=== PATIENT | female | born 1945 | race Hispanic/Latino ===

== ENCOUNTER 2017-05-27 12:50 | Inpatient (IN) | payer MEDICARE ==
[~2017-05-27] VITALS: Ht 157.5 cm; Wt 103.9 kg
[~2017-05-27 12:50] MED LIST: ASPI-1197 PO; BUDE10.2 IH; CLOP75TA32 PO; DOXY100T2 PO; FURO40TA5 PO; GLIP5TAB11 PO; LINA290C PO; LISI1TAB11 PO; METF500T6 PO; OMEP40CA37 PO; PRAV20TA4 PO; PRED20TA3 PO; THEO400T3 PO
[2017-05-27] MEDS ORDERED: IPRATROPIUM/ALBUTEROL SULFATE 3 ML SOLUTION IH ONE ×3 (13:02→22:13)
[2017-05-27 13:21] LABS: BASOPHILS % (AUTO) 0.5 % (0.0-5.0); EOSINOPHILS % (AUTO) 3.8 % (0.0-8.0); HEMATOCRIT 35.6 % (36-48); LYMPHOCYTES % (AUTO) 18.3 % (21.0-51.0); MEAN CORPUSCULAR HEMOGLOBIN 32.1 pg (27.0-33.0); MEAN CORPUSCULAR HGB CONC 35.1 g/dL (32.0-36.0); MEAN CORPUSCULAR VOLUME 91.5 fL (79-99); MONOCYTES % (AUTO) 8.8 % (3.0-13.0); NEUTROPHILS % (AUTO) 68.6 % (40.0-77.0); PLATELET COUNT (AUTO) 155 K/uL (130-400); RED BLOOD CELL COUNT(AUTO) 3.89 MIL/uL (4.00-5.50); RED CELL DISTRIBUTION WIDTH 13.7 % (11.0-15.5); WHITE BLOOD COUNT (AUTO) 6.4 K/uL (4.8-10.8)
[2017-05-27 13:30] LABS: CREATININE 0.8 mg/dL (0.5-1.5); POTASSIUM 4.2 mmol/L (3.5-5.1)
[2017-05-27] MEDS ORDERED: METHYLPREDNISOLONE SOD SUCC 125MG/2ML VIAL ONE (14:19)
[2017-05-27] MEDS ORDERED: DOXYCYCLINE 100MG+NS 250ML 250 ML IV ONE (16:54)
[2017-05-27] MEDS ORDERED: SODIUM CHLORIDE 0.9% 1000ML 1,000 ML IV ONE (17:05)
[2017-05-27 19:00] VITALS: BP 150/82
[2017-05-27] MEDS ORDERED: SODIUM CHLORIDE 0.9% 1000ML 1,000 ML IV SCH (21:45)
[2017-05-27] MEDS ORDERED: LIDOCAINE HCL-MPF 1% 2ML VIAL IVP PRN (21:45)
[2017-05-27] MEDS ORDERED: GLUCAGON 1MG KIT 1 MG ML IM PRN (21:45)
[2017-05-27] MEDS ORDERED: POTASSIUM CHLORIDE 20MEQ/100ML 100 ML IV PRN (21:45)
[2017-05-27] MEDS ORDERED: POTASSIUM CHLORIDE 10% ELIXIR 20 MEQ/15 ML UDCUP PO PRN (21:45)
[2017-05-27] MEDS ORDERED: DEXTROSE 50%-WATER 50 ML DISP.SYRIN IV PRN (21:45)
[2017-05-27] MEDS ORDERED: POTASSIUM CHLORIDE 20 MEQ ERTAB PO PRN (21:45)
[2017-05-27] MEDS: METHYLPREDNISOLONE SOD SUCC 40MG/ML 1ML IVP SCH (22:34)
[2017-05-27] MEDS: GUAIFENESIN-DM 200/20 MG 10 ML PO PRN (22:39)
[2017-05-27 23:54] VITALS: BP 132/65
[2017-05-28] MEDS: IPRATROPIUM/ALBUTEROL SULFATE 3 ML SOLUTION IH SCH ×6 (02:28→21:51)
[2017-05-28 04:00] VITALS: BP 124/62
[2017-05-28] MEDS: METHYLPREDNISOLONE SOD SUCC 40MG/ML 1ML IVP SCH ×3 (04:31→21:44)
[2017-05-28] MEDS: DOXYCYCLINE 100MG+NS 250ML 250 ML IV SCH ×2 (04:31→17:10)
[2017-05-28] MEDS: GUAIFENESIN-DM 200/20 MG 10 ML PO PRN (04:41)
[2017-05-28] MEDS: INSULIN HUMULIN R 100 UNIT/ML 3ML SQ SCH ×4 (06:06→21:49)
[2017-05-28 08:00] VITALS: BP 130/72
[2017-05-28] MEDS ORDERED: NITROGLYCERIN 0.4 MG SL TAB SL PRN (08:00)
[2017-05-28] MEDS ORDERED: GLIPIZIDE XL 5MG TAB PO SCH (08:00)
[2017-05-28] MEDS ORDERED: MORPHINE SULFATE 4 MG/1ML SYG IV PRN (08:00)
[2017-05-28] MEDS ORDERED: LACTULOSE 20 GM/30 ML UDCUP PO PRN (08:00)
[2017-05-28] MEDS ORDERED: ACETAMINOPHEN-CODEINE 300/30MG TAB PO PRN ×2 (08:00)
[2017-05-28] MEDS ORDERED: GUAIFENESIN-DM 200/20 MG 10 ML PO PRN (08:00)
[2017-05-28] MEDS ORDERED: ACETAMINOPHEN 325 MG TAB PO PRN ×2 (08:00)
[2017-05-28] MEDS ORDERED: MAG HYDROX/AL HYDROX/SIMETH ES 30 ML SUSP UDCUP PO PRN (08:00)
[2017-05-28] MEDS ORDERED: HYDRALAZINE HCL 20 MG/ML VIAL IV PRN (08:00)
[2017-05-28] MEDS ORDERED: ONDANSETRON HCL 4 MG/2 ML VIAL IV PRN (08:00)
[2017-05-28] MEDS ORDERED: MORPHINE SULFATE 2 MG/ML 1ML SYG IV PRN (08:00)
[2017-05-28] MEDS ORDERED: SUB PER P&T FOR ASTHMA OR COPD RECOMMENDATION IH SCH (09:00)
[2017-05-28] MEDS: FAMOTIDINE/PF 20 MG/2 ML VIAL IV SCH ×2 (09:05→21:43)
[2017-05-28] MEDS: ENOXAPARIN SODIUM 40 MG/0.4 ML SYRINGE SQ SCH (09:06)
[2017-05-28] MEDS: GUAIFENESIN-CODEINE 5 ML SYRUP PO PRN ×2 (09:07→21:44)
[2017-05-28 11:59] VITALS: BP 134/65
[2017-05-28 16:00] VITALS: BP 126/66
[2017-05-28] MEDS: BUDESONIDE 0.5 MG/2 ML INH IH SCH (18:46)
[2017-05-28 19:39] VITALS: BP 135/74
[2017-05-28] MEDS ORDERED: MONT10TA24 PO (22:01)
[2017-05-28] MEDS ORDERED: POTA-81 PO (22:01)
[2017-05-28 23:41] VITALS: BP 146/75
[2017-05-29] MEDS: IPRATROPIUM/ALBUTEROL SULFATE 3 ML SOLUTION IH SCH ×4 (03:03→18:12)
[2017-05-29 03:59] VITALS: BP 145/64
[2017-05-29 04:27] LABS: HEMATOCRIT 32.9 % (36-48); MEAN CORPUSCULAR HEMOGLOBIN 32.1 pg (27.0-33.0); MEAN CORPUSCULAR VOLUME 91.6 fL (79-99); PLATELET COUNT (AUTO) 139 K/uL (130-400); RED BLOOD CELL COUNT(AUTO) 3.59 MIL/uL (4.00-5.50); RED CELL DISTRIBUTION WIDTH 14.1 % (11.0-15.5); WHITE BLOOD COUNT (AUTO) 8.5 K/uL (4.8-10.8)
[2017-05-29 04:40] LABS: POTASSIUM 4.3 mmol/L (3.5-5.1)
[2017-05-29] MEDS: DOXYCYCLINE 100MG+NS 250ML 250 ML IV SCH ×2 (04:56→17:24)
[2017-05-29] MEDS: BUDESONIDE 0.5 MG/2 ML INH IH SCH ×2 (06:16→18:12)
[2017-05-29] MEDS: METHYLPREDNISOLONE SOD SUCC 40MG/ML 1ML IVP SCH ×3 (06:36→21:15)
[2017-05-29] MEDS: INSULIN HUMULIN R 100 UNIT/ML 3ML SQ SCH ×4 (06:42→21:26)
[2017-05-29 07:00] VITALS: BP 117/59
[2017-05-29] MEDS: METFORMIN HCL 500 MG TABLET PO SCH ×2 (08:40→21:15)
[2017-05-29] MEDS: FUROSEMIDE 40 MG TABLET PO SCH ×2 (08:40→17:24)
[2017-05-29] MEDS: CLOPIDOGREL BISULFATE 75 MG TAB PO SCH (08:41)
[2017-05-29] MEDS: LISINOPRIL 20 MG TABLET PO SCH (08:41)
[2017-05-29] MEDS: ASPIRIN 81MG TAB.CHEW PO SCH (08:41)
[2017-05-29] MEDS: HYDROCHLOROTHIAZIDE 25 MG TABLET PO SCH (08:42)
[2017-05-29] MEDS: FAMOTIDINE/PF 20 MG/2 ML VIAL IV SCH ×2 (08:43→21:15)
[2017-05-29] MEDS: POTASSIUM CHLORIDE 10 MEQ/TAB.SA PO SCH (08:43)
[2017-05-29] MEDS: ENOXAPARIN SODIUM 40 MG/0.4 ML SYRINGE SQ SCH (08:45)
[2017-05-29] MEDS: GUAIFENESIN-CODEINE 5 ML SYRUP PO PRN ×2 (09:27→14:19)
[2017-05-29] MEDS ORDERED: IPRATROPIUM/ALBUTEROL SULFATE 3 ML SOLUTION IH ONE (10:42)
[2017-05-29] MEDS: ACETYLCYSTEINE 20% 200MG/ML 4ML VIAL IH SCH ×3 (10:59→18:13)
[2017-05-29 11:00] VITALS: BP 111/59
[2017-05-29 15:51] VITALS: BP 131/67
[2017-05-29] MEDS ORDERED: ATORVASTATIN CALCIUM 10 MG TABLET PO SCH (21:00)
[2017-05-29] MEDS ORDERED: MONTELUKAST SODIUM 10 MG TAB PO SCH (21:00)
[2017-05-29 21:01] VITALS: BP 139/86
[2017-05-30 00:05] VITALS: BP 127/94
[2017-05-30] MEDS: GUAIFENESIN-CODEINE 5 ML SYRUP PO PRN (00:06)
[2017-05-30] MEDS ORDERED: ACETYLCYSTEINE 20% 200MG/ML 4ML VIAL ONE (00:06)
[2017-05-30] MEDS: IPRATROPIUM/ALBUTEROL SULFATE 3 ML SOLUTION IH SCH ×3 (00:09→11:05)
[2017-05-30 03:20] VITALS: BP 109/58
[2017-05-30 04:55] LABS: CREATININE 1.1 mg/dL (0.5-1.5); POTASSIUM 4.2 mmol/L (3.5-5.1)
[2017-05-30] MEDS: DOXYCYCLINE 100MG+NS 250ML 250 ML IV SCH (05:22)
[2017-05-30] MEDS: METHYLPREDNISOLONE SOD SUCC 40MG/ML 1ML IVP SCH ×2 (05:23→13:57)
[2017-05-30] MEDS: BUDESONIDE 0.5 MG/2 ML INH IH SCH (06:10)
[2017-05-30] MEDS: INSULIN HUMULIN R 100 UNIT/ML 3ML SQ SCH ×2 (06:35→12:18)
[2017-05-30 07:00] VITALS: BP 135/71
[2017-05-30] MEDS ORDERED: MAGNESIUM HYDROXIDE 30 ML/UDCUP PO PRN (08:30)
[2017-05-30] MEDS: CLOPIDOGREL BISULFATE 75 MG TAB PO SCH (08:49)
[2017-05-30] MEDS: ASPIRIN 81MG TAB.CHEW PO SCH (08:49)
[2017-05-30] MEDS: POTASSIUM CHLORIDE 10 MEQ/TAB.SA PO SCH (08:49)
[2017-05-30] MEDS: FUROSEMIDE 40 MG TABLET PO SCH (08:50)
[2017-05-30] MEDS: HYDROCHLOROTHIAZIDE 25 MG TABLET PO SCH (08:50)
[2017-05-30] MEDS: LISINOPRIL 20 MG TABLET PO SCH (08:50)
[2017-05-30] MEDS: FAMOTIDINE/PF 20 MG/2 ML VIAL IV SCH (08:50)
[2017-05-30] MEDS: METFORMIN HCL 500 MG TABLET PO SCH (08:51)
[2017-05-30] MEDS: ENOXAPARIN SODIUM 40 MG/0.4 ML SYRINGE SQ SCH (08:52)
[2017-05-30 11:00] VITALS: BP 134/71
== END 2017-05-30 16:15 | disposition home or self-care (01) | DRG 202 ==
LOC: EDH 12:50 → OBSVTOIN 16:50 → EDHIP 16:50 → 3CH 19:22
PROVIDERS: ADMIT Internal Medicine; ATTEND Internal Medicine
DX: J45.901 Unspecified asthma with (acute) exacerbation (principal); I50.32 Chronic diastolic (congestive) heart failure; E11.51 Type 2 diabetes mellitus with diabetic peripheral angiopathy without gangrene; E11.65 Type 2 diabetes mellitus with hyperglycemia; Z68.41 Body mass index [BMI] 40.0-44.9, adult; I11.0 Hypertensive heart disease with heart failure; E66.01 Morbid (severe) obesity due to excess calories; E78.5 Hyperlipidemia, unspecified; Z87.891 Personal history of nicotine dependence; Z82.5 Family history of asthma and other chronic lower respiratory diseases; Z79.899 Other long term (current) drug therapy; Z79.82 Long term (current) use of aspirin; Z79.02 Long term (current) use of antithrombotics/antiplatelets
CPT/HCPCS: 36415; 71045; 80048; 82948; 85025; 85027; 87804; 93005; 94640; 94664; 94667; J1650; J1815; J2920; J2930; J3490; J7030; J7608

== ENCOUNTER 2017-07-08 14:02 | Inpatient (IN) | payer MEDICARE ==
[~2017-07-08] VITALS: Ht 157.5 cm; Wt 103.0 kg
[~2017-07-08 14:02] MED LIST changes: -DOXY100T2 PO; -GLIP5TAB11 PO; -LINA290C PO; +MONT10TA24 PO; +POTA-81 PO; -PRED20TA3 PO; -THEO400T3 PO
[2017-07-08 14:33] LABS: BASOPHILS % (AUTO) 0.7 % (0.0-5.0); HEMATOCRIT 31.8 % (36-48); LYMPHOCYTES % (AUTO) 24.5 % (21.0-51.0); MEAN CORPUSCULAR HEMOGLOBIN 33.6 pg (27.0-33.0); MEAN CORPUSCULAR HGB CONC 36.1 g/dL (32.0-36.0); MEAN CORPUSCULAR VOLUME 92.8 fL (79-99); MONOCYTES % (AUTO) 10.5 % (3.0-13.0); NEUTROPHILS % (AUTO) 58.3 % (40.0-77.0); PLATELET COUNT (AUTO) 117 K/uL (130-400); RED BLOOD CELL COUNT(AUTO) 3.42 MIL/uL (4.00-5.50); WHITE BLOOD COUNT (AUTO) 4.3 K/uL (4.8-10.8)
[2017-07-08 14:45] LABS: PARTIAL THROMBOPLASTIN TIME 25.4 SEC (26.3-35.5); PROTHROMBIN TIME 10.5 SEC (9.6-11.6)
[2017-07-08 14:48] LABS: CREATININE 0.8 mg/dL (0.5-1.5); POTASSIUM 4.4 mmol/L (3.5-5.1)
[2017-07-08 15:03] LABS: ALBUMIN 3.3 g/dL (3.5-5.0); CREATINE KINASE MB 0.5 ng/mL (0.5-3.6); TOTAL PROTEIN, SERUM 6.7 g/dL (6.0-8.3)
[2017-07-08 15:31] LABS: B-TYPE NATRIURETIC PEPTIDE 22 pg/mL (0-100)
[2017-07-08] MEDS ORDERED: METHYLPREDNISOLONE SOD SUCC 125MG/2ML VIAL ONE (15:32)
[2017-07-08] MEDS ORDERED: IPRATROPIUM/ALBUTEROL SULFATE 3 ML SOLUTION IH ONE (15:43)
[2017-07-08] MEDS ORDERED: ACETAMINOPHEN 325 MG TAB ONE (18:48)
[2017-07-08] MEDS ORDERED: CLONIDINE HCL 0.1 MG TABLET PO PRN (19:15)
[2017-07-08] MEDS ORDERED: NITROGLYCERIN 0.4 MG SL TAB SL PRN (19:15)
[2017-07-08] MEDS ORDERED: LACTULOSE 20 GM/30 ML UDCUP PO PRN (19:15)
[2017-07-08] MEDS ORDERED: MORPHINE SULFATE 4 MG/1ML SYG IVP PRN (19:15)
[2017-07-08] MEDS ORDERED: ONDANSETRON HCL MDV 20ML 2 MG/ML VIAL IVP PRN (19:15)
[2017-07-08] MEDS ORDERED: ACETAMINOPHEN 325 MG TAB PO PRN ×2 (19:15)
[2017-07-08 22:35] VITALS: BP 129/72
[2017-07-08] MEDS: IPRATROPIUM/ALBUTEROL SULFATE 3 ML SOLUTION IH SCH (22:50)
[2017-07-08] MEDS: METHYLPREDNISOLONE SOD SUCC 40MG/ML 1ML IVP SCH (23:48)
[2017-07-09] VITALS: BP 137/80
[2017-07-09] MEDS ORDERED: GUAIFENESIN-DM 200/20 MG 10 ML PO PRN
[2017-07-09 00:35] LABS: APPEARANCE,URINE Clear (CLEAR); BILIRUBIN,URINE Negative (NEGATIVE); COLOR,URINE Dark Yellow (YELLOW); GLUCOSE, URINE (UA) 500 mg/dL (NEGATIVE); KETONES,URINE Trace mg/dL (NEGATIVE); LEUKOCYTE ESTERASE ,URINE Small (NEGATIVE); NITRATE,URINE Negative (NEGATIVE); OCCULT BLOOD,URINE Negative (NEGATIVE); PROTEIN,URINE Negative (NEGATIVE)
[2017-07-09] MEDS: AZITHROMYCIN 500MG+NS 250ML 250 ML IV SCH ×2 (00:46→23:37)
[2017-07-09 00:47] LABS: CREATINE KINASE MB 0.6 ng/mL (0.5-3.6); CREATINE KINASE, TOTAL 35 U/L (21-232); MYOGLOBIN 39 ng/mL (10-92); TROPONIN I < 0.04 ng/mL (0.00-0.06)
[2017-07-09 00:50] LABS: BACTERIA,URINE Few /HPF (None Seen); MUCUS,URINE Few LPF (None Seen); RBC,URINE 0-1 /HPF (0-1); RENAL EPITHELIAL CELLS,URINE Few /HPF (None Seen); SQUAMOUS EPITHELIAL CELL,UR Moderate /HPF (0-2)
[2017-07-09] MEDS: IPRATROPIUM/ALBUTEROL SULFATE 3 ML SOLUTION IH SCH ×7 (01:45→23:37)
[2017-07-09 04:00] VITALS: BP 120/64
[2017-07-09] MEDS ORDERED: DEXTROSE 50%-WATER 50 ML DISP.SYRIN IV PRN (06:30)
[2017-07-09] MEDS ORDERED: GLUCAGON 1MG KIT 1 MG ML IM PRN (06:30)
[2017-07-09 06:42] LABS: CREATINE KINASE MB 0.6 ng/mL (0.5-3.6); CREATINE KINASE, TOTAL 34 U/L (21-232); MYOGLOBIN 36 ng/mL (10-92); TROPONIN I < 0.04 ng/mL (0.00-0.06)
[2017-07-09] MEDS: METHYLPREDNISOLONE SOD SUCC 40MG/ML 1ML IVP SCH ×3 (06:48→23:35)
[2017-07-09] MEDS: INSULIN HUMULIN R 100 UNIT/ML 3ML SQ SCH ×4 (06:50→21:12)
[2017-07-09 08:57] VITALS: BP 150/74
[2017-07-09] MEDS ORDERED: IOPAMIDOL-370 100 ML VIAL IV ONE (10:50)
[2017-07-09] MEDS: FAMOTIDINE 20MG TAB 20 MG TAB PO SCH ×2 (10:51→21:07)
[2017-07-09 14:26] VITALS: BP 119/63
[2017-07-09 16:00] VITALS: BP 132/66
[2017-07-09] MEDS: METFORMIN HCL 500 MG TABLET PO SCH (17:30)
[2017-07-09] MEDS: FUROSEMIDE 40 MG TABLET PO SCH (17:34)
[2017-07-09] MEDS: BUDESONIDE 0.5 MG/2 ML INH IH SCH (18:43)
[2017-07-09 19:20] VITALS: BP 123/67
[2017-07-09] MEDS: MONTELUKAST SODIUM 10 MG TAB PO SCH (21:07)
[2017-07-09] MEDS: ATORVASTATIN CALCIUM 10 MG TABLET PO SCH (21:08)
[2017-07-10 00:30] VITALS: BP 138/78
[2017-07-10 04:03] LABS: HEMATOCRIT 32.2 % (36-48); MEAN CORPUSCULAR HEMOGLOBIN 33.5 pg (27.0-33.0); MEAN CORPUSCULAR HGB CONC 35.6 g/dL (32.0-36.0); MEAN CORPUSCULAR VOLUME 93.9 fL (79-99); PLATELET COUNT (AUTO) 112 K/uL (130-400); RED BLOOD CELL COUNT(AUTO) 3.43 MIL/uL (4.00-5.50); RED CELL DISTRIBUTION WIDTH 15.2 % (11.0-15.5); WHITE BLOOD COUNT (AUTO) 6.4 K/uL (4.8-10.8)
[2017-07-10 04:25] VITALS: BP 123/69
[2017-07-10] MEDS: METHYLPREDNISOLONE SOD SUCC 40MG/ML 1ML IVP SCH ×2 (06:10→14:38)
[2017-07-10] MEDS: BUDESONIDE 0.5 MG/2 ML INH IH SCH ×2 (06:15→18:33)
[2017-07-10] MEDS: IPRATROPIUM/ALBUTEROL SULFATE 3 ML SOLUTION IH SCH ×4 (06:15→23:49)
[2017-07-10] MEDS: INSULIN HUMULIN R 100 UNIT/ML 3ML SQ SCH ×4 (06:32→21:15)
[2017-07-10 07:00] VITALS: BP 160/71
[2017-07-10] MEDS: METFORMIN HCL 500 MG TABLET PO SCH ×2 (08:54→17:05)
[2017-07-10] MEDS: CLOPIDOGREL BISULFATE 75 MG TAB PO SCH (08:54)
[2017-07-10] MEDS: FAMOTIDINE 20MG TAB 20 MG TAB PO SCH ×2 (08:54→21:09)
[2017-07-10] MEDS: PANTOPRAZOLE SODIUM 40 MG TABLET.DR PO SCH (08:54)
[2017-07-10] MEDS: ASPIRIN 81MG TAB.CHEW PO SCH (08:54)
[2017-07-10] MEDS: HYDROCHLOROTHIAZIDE 25 MG TABLET PO SCH (08:55)
[2017-07-10] MEDS: POTASSIUM CHLORIDE 10 MEQ/TAB.SA PO SCH (08:56)
[2017-07-10] MEDS: LISINOPRIL 20 MG TABLET PO SCH (08:56)
[2017-07-10] MEDS: FUROSEMIDE 40 MG TABLET PO SCH ×2 (08:58→17:05)
[2017-07-10 11:00] VITALS: BP 141/75
[2017-07-10] MEDS ORDERED: CEFTRIAXONE 1GM/D5W 50ML 50 ML IV SCH (14:45)
[2017-07-10] MEDS ORDERED: CEFTRIAXONE SODIUM 1 GM IVP SCH (15:00)
[2017-07-10 16:00] VITALS: BP 123/53
[2017-07-10 20:00] VITALS: BP 118/66
[2017-07-10] MEDS: ATORVASTATIN CALCIUM 10 MG TABLET PO SCH (21:09)
[2017-07-10] MEDS: MONTELUKAST SODIUM 10 MG TAB PO SCH (21:09)
[2017-07-11] VITALS: BP 116/64
[2017-07-11] MEDS: METHYLPREDNISOLONE SOD SUCC 40MG/ML 1ML IVP SCH ×2 (00:37→07:54)
[2017-07-11] MEDS: AZITHROMYCIN 500MG+NS 250ML 250 ML IV SCH (00:38)
[2017-07-11 04:00] VITALS: BP 122/71
[2017-07-11] MEDS: BUDESONIDE 0.5 MG/2 ML INH IH SCH (06:23)
[2017-07-11] MEDS: IPRATROPIUM/ALBUTEROL SULFATE 3 ML SOLUTION IH SCH ×2 (06:23→11:27)
[2017-07-11] MEDS: PANTOPRAZOLE SODIUM 40 MG TABLET.DR PO SCH (07:55)
[2017-07-11] MEDS: INSULIN HUMULIN R 100 UNIT/ML 3ML SQ SCH ×2 (07:57→12:05)
[2017-07-11 08:00] VITALS: BP 154/77
[2017-07-11] MEDS: FAMOTIDINE 20MG TAB 20 MG TAB PO SCH (08:33)
[2017-07-11] MEDS: ASPIRIN 81MG TAB.CHEW PO SCH (08:33)
[2017-07-11] MEDS: LISINOPRIL 20 MG TABLET PO SCH (08:33)
[2017-07-11] MEDS: HYDROCHLOROTHIAZIDE 25 MG TABLET PO SCH (08:34)
[2017-07-11] MEDS: CLOPIDOGREL BISULFATE 75 MG TAB PO SCH (08:34)
[2017-07-11] MEDS: FUROSEMIDE 40 MG TABLET PO SCH (08:35)
[2017-07-11] MEDS: METFORMIN HCL 500 MG TABLET PO SCH (08:35)
[2017-07-11] MEDS: POTASSIUM CHLORIDE 10 MEQ/TAB.SA PO SCH (08:35)
[2017-07-11] MEDS ORDERED: AZIT500T4 PO (10:16)
[2017-07-11] MEDS ORDERED: PRED20TA3 PO (10:16)
[2017-07-11 11:44] VITALS: BP 151/69
== END 2017-07-11 12:59 | disposition home or self-care (01) | DRG 202 ==
LOC: EDH 14:02 → OBSVTOIN 15:30 → EDHIP 15:30 → 3AH 21:27 → 3BH 22:03
PROVIDERS: ADMIT Family Medicine; ATTEND Family Medicine
DX: J45.901 Unspecified asthma with (acute) exacerbation (principal); Z68.41 Body mass index [BMI] 40.0-44.9, adult; E11.51 Type 2 diabetes mellitus with diabetic peripheral angiopathy without gangrene; Z99.81 Dependence on supplemental oxygen; I10 Essential (primary) hypertension; E78.5 Hyperlipidemia, unspecified; E66.01 Morbid (severe) obesity due to excess calories; Z87.891 Personal history of nicotine dependence; Z82.5 Family history of asthma and other chronic lower respiratory diseases
CPT/HCPCS: 36415; 71045; 71275; 80053; 81001; 82550; 82553; 82948; 83874; 83880; 84484; 85025; 85027; 85610; 85730; 87804; 93005; 93306; 94640; 94664; A4218; J0456; J0696; J1815; J2270; J2920; J2930; Q9967

== ENCOUNTER → 2018-03-11 | Outpatient (CLI) | payer MEDICARE ==
[~2018-03-11] MED LIST changes: +AZIT500T4 PO; +METF-444 PO; -METF500T6 PO; +PRED20TA3 PO
== END | disposition home or self-care (01) ==
LOC: SHCH 09:14
PROVIDERS: ATTEND Internal Medicine Cardiovascular Disease
DX: I10 Essential (primary) hypertension (principal)
CPT/HCPCS: 93306

== ENCOUNTER → 2018-03-13 | Outpatient (CLI) | payer MEDICARE ==
[~2018-03-13] VITALS: Ht 157.5 cm; Wt 104.3 kg
[~2018-03-13] MED LIST changes: +REGADENOSON 0.4 MG/5 ML PF SYG IVP SCH
== END | disposition home or self-care (01) ==
LOC: SHCH 08:10
PROVIDERS: ATTEND Internal Medicine Cardiovascular Disease
DX: R07.9 Chest pain, unspecified (principal)
CPT/HCPCS: 78452; 93017; 96374; A9500 ×2; J2785

== ENCOUNTER 2018-05-16 20:30 | Emergency (ER) | payer MEDICARE ==
[~2018-05-16 20:30] MED LIST changes: -REGADENOSON 0.4 MG/5 ML PF SYG IVP SCH
[2018-05-16 21:02] LABS: BASOPHILS % (AUTO) 0.9 % (0.0-5.0); EOSINOPHILS % (AUTO) 3.7 % (0.0-8.0); HEMATOCRIT 35.1 % (36-48); MEAN CORPUSCULAR HEMOGLOBIN 31.7 pg (27.0-33.0); MEAN CORPUSCULAR HGB CONC 33.4 g/dL (32.0-36.0); MEAN CORPUSCULAR VOLUME 94.7 fL (79-99); MONOCYTES % (AUTO) 8.6 % (3.0-13.0); NEUTROPHILS % (AUTO) 54.8 % (40.0-77.0); PLATELET COUNT (AUTO) 116 K/uL (130-400); RED CELL DISTRIBUTION WIDTH 14.8 % (11.0-15.5); WHITE BLOOD COUNT (AUTO) 3.6 K/uL (4.8-10.8)
[2018-05-16 21:23] LABS: CREATININE 1.1 mg/dL (0.5-1.5); POTASSIUM 3.8 mmol/L (3.5-5.1)
[2018-05-16 21:28] LABS: ALBUMIN 3.1 g/dL (3.5-5.0); BILIRUBIN,TOTAL 0.6 mg/dL (0.2-1.0); TOTAL PROTEIN, SERUM 7.1 g/dL (6.0-8.3)
[2018-05-16 21:48] LABS: BILIRUBIN,URINE Negative (NEGATIVE); COLOR,URINE Yellow (YELLOW); GLUCOSE, URINE (UA) Negative (NEGATIVE); KETONES,URINE Negative (NEGATIVE); LEUKOCYTE ESTERASE ,URINE Trace (NEGATIVE); NITRATE,URINE Negative (NEGATIVE); OCCULT BLOOD,URINE Negative (NEGATIVE); PROTEIN,URINE Negative (NEGATIVE); UROBILINOGEN,URINE 0.2 mg/dL (0.2-1.0)
[2018-05-16 21:50] LABS: APPEARANCE,URINE CLEAR (CLEAR)
[2018-05-16 22:01] LABS: BACTERIA,URINE Rare /HPF (None Seen); RBC,URINE 0-1 /HPF (0-1); SQUAMOUS EPITHELIAL CELL,UR Rare /HPF (0-2); WBC,URINE 0-1 /HPF (0-1)
[2018-05-16 22:08] LABS: INR 0.95 (0.85-1.15); PARTIAL THROMBOPLASTIN TIME 28.2 SEC (26.3-35.5)
== END 2018-05-16 23:35 | disposition home or self-care (01) ==
LOC: EDH 20:30
DX: R20.2 Paresthesia of skin (principal); E11.9 Type 2 diabetes mellitus without complications; I10 Essential (primary) hypertension; J44.9 Chronic obstructive pulmonary disease, unspecified; E78.5 Hyperlipidemia, unspecified; Z90.49 Acquired absence of other specified parts of digestive tract; Z98.890 Other specified postprocedural states; Z87.891 Personal history of nicotine dependence; Z79.82 Long term (current) use of aspirin; Z79.899 Other long term (current) drug therapy
CPT/HCPCS: 36415; 70450; 80053; 81001; 82550; 82948; 84484; 85025; 85610; 85730; 93005

== ENCOUNTER 2018-08-03 08:32 | Emergency (ER) | payer MEDICARE ==
[2018-08-03] MEDS ORDERED: ONDANSETRON ODT 4 MG TAB ONE (09:11)
[2018-08-03] MEDS ORDERED: HYDROCODONE/ACETAMINOPHEN 5/325 MG TAB ONE (09:12)
== END 2018-08-03 13:42 | disposition home or self-care (01) ==
LOC: EDH 08:32
DX: M76.32 Iliotibial band syndrome, left leg (principal); M25.552 Pain in left hip; M25.562 Pain in left knee; E11.9 Type 2 diabetes mellitus without complications; J44.9 Chronic obstructive pulmonary disease, unspecified; E78.5 Hyperlipidemia, unspecified; I10 Essential (primary) hypertension; Z87.891 Personal history of nicotine dependence
CPT/HCPCS: 73502; 73552; 73562; 73590

== ENCOUNTER → 2018-10-08 | Outpatient (CLI) | payer MEDICARE ==
[~2018-10-08] MED LIST changes: -LISI1TAB11 PO; +LISI1TAB27 PO
== END | disposition home or self-care (01) ==
LOC: SHCH 13:18
PROVIDERS: ATTEND Internal Medicine Cardiovascular Disease
DX: I87.2 Venous insufficiency (chronic) (peripheral) (principal); I10 Essential (primary) hypertension; E11.9 Type 2 diabetes mellitus without complications; J44.9 Chronic obstructive pulmonary disease, unspecified
CPT/HCPCS: 93970

== ENCOUNTER → 2018-12-15 | Outpatient (CLI) | payer MEDICARE ==
[~2018-12-15] MED LIST changes: -LISI1TAB27 PO; +LISI1TAB28 PO; +OMEP40CA13 PO; -OMEP40CA37 PO
== END | disposition home or self-care (01) ==
LOC: SHCH 10:32
PROVIDERS: ATTEND Internal Medicine Cardiovascular Disease
DX: Z09 Encounter for follow-up examination after completed treatment for conditions other than malignant neoplasm (principal)
CPT/HCPCS: 93971

== ENCOUNTER → 2018-12-22 | Outpatient (CLI) | payer MEDICARE | END | disposition home or self-care (01) | LOC: SHCH 10:36 | PROVIDERS: ATTEND Internal Medicine Cardiovascular Disease | DX: I82.812 Embolism and thrombosis of superficial veins of left lower extremity (principal) | CPT/HCPCS: 93971 ==

== ENCOUNTER → 2019-05-04 | Outpatient (CLI) | payer MEDICARE ==
[~2019-05-04] MED LIST changes: -MONT10TA24 PO; +MONT10TA26 PO
== END | disposition home or self-care (01) ==
LOC: SHCH 08:32
PROVIDERS: ATTEND Internal Medicine Cardiovascular Disease
DX: I87.2 Venous insufficiency (chronic) (peripheral) (principal)
CPT/HCPCS: 93970

== ENCOUNTER 2019-12-01 09:00 | Inpatient (IN) | payer MEDICARE ==
[~2019-12-01] VITALS: Ht 152.4 cm; Wt 100.2 kg
[~2019-12-01 09:00] MED LIST changes: -AZIT500T4 PO; -BUDE10.2 IH; -CLOP75TA32 PO; -FURO40TA5 PO; +INSU100I21 SQ; +LISI-613 PO; -LISI1TAB28 PO; -MONT10TA26 PO; -POTA-81 PO; -PRAV20TA4 PO; -PRED20TA3 PO
[2019-12-01 11:30] VITALS: BP 198/70
[2019-12-01 12:54] LABS: BASOPHILS % (AUTO) 0.8 % (0.0-5.0); EOSINOPHILS % (AUTO) 1.2 % (0.0-8.0); HEMATOCRIT 33.7 % (36-48); LYMPHOCYTES % (AUTO) 27.5 % (21.0-51.0); MEAN CORPUSCULAR HGB CONC 34.1 g/dL (32.0-36.0); MEAN CORPUSCULAR VOLUME 96.8 fL (79-99); NEUTROPHILS % (AUTO) 59.9 % (40.0-77.0); PLATELET COUNT (AUTO) 178 K/uL (130-400); RED BLOOD CELL COUNT(AUTO) 3.48 MIL/uL (4.00-5.50); RED CELL DISTRIBUTION WIDTH 14.2 % (11.0-15.5); WHITE BLOOD COUNT (AUTO) 4.9 K/uL (4.8-10.8)
[2019-12-01 13:03] LABS: APPEARANCE,URINE Clear (CLEAR); BILIRUBIN,URINE Negative (NEGATIVE); COLOR,URINE Yellow (YELLOW); GLUCOSE, URINE (UA) Negative (NEGATIVE); KETONES,URINE Negative (NEGATIVE); LEUKOCYTE ESTERASE ,URINE Trace (NEGATIVE); NITRATE,URINE Negative (NEGATIVE); OCCULT BLOOD,URINE Negative (NEGATIVE); PROTEIN,URINE Negative (NEGATIVE)
[2019-12-01 13:06] LABS: CREATININE 0.9 mg/dL (0.5-1.5); POTASSIUM 4.6 mmol/L (3.5-5.1)
[2019-12-01 13:13] LABS: BACTERIA,URINE Rare /HPF (None Seen); RBC,URINE 0-1 /HPF (0-1); SQUAMOUS EPITHELIAL CELL,UR Few /HPF (0-2); WBC,URINE 0-1 /HPF (0-1)
[2019-12-01 13:16] LABS: INR 1.02 (0.85-1.15)
--- NOTE | 2019-12-04 09:44 | NUR ---
ABNORMAL LABS REPORTED TO DR DE JESUS- REPEAT SODIUM AND TYPE AND SCREEN ON DAY OF PROCEDURE
--- NOTE | 2019-12-04 10:31 | NUR ---
LOW SODIUM REPORTED TO ARIA HICKS
[2019-12-04] MEDS ORDERED: TRAM50TA4 PO (13:46)
[2019-12-04] MEDS ORDERED: FOLI0.8T PO (13:46)
[2019-12-04] MEDS ORDERED: CYAN-35 PO (13:46)
[2019-12-04] MEDS ORDERED: FERR-82 PO (13:46)
[2019-12-04] MEDS ORDERED: FURO40TA5 PO (13:46)
[2019-12-04] MEDS ORDERED: POTA-79 PO (13:46)
[2019-12-04] MEDS ORDERED: [UNRECOGNIZED DRUG - OTHER] PO (14:11)
[2019-12-07] VITALS (22 sets, daily range): BP systolic 114–143; BP diastolic 50–71
[2019-12-07] MEDS: CEFAZOLIN SODIUM 1 GM VIAL IVP SCH ×2 (06:00→16:00)
[2019-12-07] MEDS ORDERED: SODIUM CHLORIDE 0.9% 1000ML 1,000 ML IV ONE (08:14)
[2019-12-07] MEDS ORDERED: CEFAZOLIN SODIUM 1 GM VIAL ONE ×2 (13:49→19:44)
[2019-12-07] MEDS ORDERED: VANCOMYCIN HCL 1 GM VIAL ONE (13:50)
[2019-12-07] MEDS ORDERED: TRANEXAMIC ACID 1000MG/10ML ONE ×2 (13:51→21:09)
[2019-12-07] MEDS ORDERED: LIDOCAINE PF 2% 5ML ABBOJECT ONE (15:31)
[2019-12-07] MEDS ORDERED: ONDANSETRON HCL 4 MG/2 ML VIAL ONE (15:31)
[2019-12-07] MEDS ORDERED: PROPOFOL 10 MG/ML 20ML VIAL IV ONE (15:31)
[2019-12-07] MEDS ORDERED: ROCURONIUM 10MG/1ML SYR 10 MG/ML ML ONE ×2 (15:31→15:37)
[2019-12-07] MEDS ORDERED: ROPIVACAINE 0.5% 5MG/ML 30ML IJ ONE (15:40)
[2019-12-07] MEDS ORDERED: DEXAMETHASONE SOD PHOSPHATE 10MG/ML 1ML VIAL ONE (15:40)
[2019-12-07] MEDS ORDERED: FENTANYL CITRATE PF 50 MCG/1 ML 5ML AMP IV ONE (16:20)
[2019-12-07] MEDS ORDERED: EPHEDRINE SULFATE 50 MG/ML AMPULE ONE (17:46)
[2019-12-07] MEDS: SODIUM CHLORIDE 0.9% 1000ML 1,000 ML IV SCH (20:49)
[2019-12-07] MEDS ORDERED: TRAMADOL HCL 50 MG TABLET PO PRN (21:00)
[2019-12-07] MEDS ORDERED: OXYCODONE HCL 5 MG TAB PO PRN (21:00)
[2019-12-07] MEDS ORDERED: LIDOCAINE HCL-MPF 1% 2ML VIAL IV PRN (21:00)
[2019-12-07] MEDS ORDERED: POTASSIUM CHLORIDE 20MEQ/100ML 100 ML IV PRN (21:00)
[2019-12-07] MEDS ORDERED: DiphenhydrAMINE HCL 50 MG/ML VIAL IVP PRN (21:00)
[2019-12-07] MEDS ORDERED: ONDANSETRON HCL 4 MG/2 ML VIAL IVP PRN (21:00)
[2019-12-07] MEDS ORDERED: POTASSIUM CHLORIDE 10% ELIXIR 20 MEQ/15 ML UDCUP PO PRN (21:00)
[2019-12-07] MEDS ORDERED: POTASSIUM CHLORIDE 20 MEQ ERTAB PO PRN (21:00)
[2019-12-07] MEDS ORDERED: FERROUS FUMARATE 324 MG TABLET PO PRN (21:00)
[2019-12-07] MEDS: INSULIN HUMULIN R 100 UNIT/ML 3ML SQ SCH (21:00)
[2019-12-07] MEDS ORDERED: KETOROLAC TROMETHAMINE 15MG/ML IV PRN (21:00)
[2019-12-07] MEDS ORDERED: GLYCOPYRROLATE 1 MG/5 ML SYRINGE ONE (21:01)
[2019-12-07] MEDS ORDERED: NEOSTIGMINE 5MG/5ML SYR IV ONE (21:01)
[2019-12-07 21:43] LABS: APPEARANCE BODY FLUID CLOUDY (CLEAR); SPECIMENTYPE,BODY FLUID SYNOVIAL
[2019-12-07 21:44] LABS: BODY FLUID RBC 4455 /cu. mm.; BODY FLUID WBC 11940 /cu. mm.; COLOR,BODY FLUID ORANGE (LT YELLOW); TOTAL VOLUME,BODY FLUID 10 mL
[2019-12-07 21:47] LABS: BF LYMPHOCYTE 1 %
[2019-12-07] MEDS ORDERED: MEPERIDINE-PF 25 MG/ML SYG ONE ×2 (21:54→22:04)
[2019-12-07] MEDS: TEMAZEPAM 15 MG CAPSULE PO PRN (23:34)
[2019-12-07] MEDS: FAMOTIDINE 20MG TAB 20 MG TAB PO SCH (23:35)
[2019-12-07] MEDS: ACETAMINOPHEN EXTRA STRENGTH 500 MG TABLET PO SCH (23:35)
[2019-12-07] MEDS: CELECOXIB 200 MG CAP PO SCH (23:35)
[2019-12-08] VITALS (10 sets, daily range): BP systolic 98–138; BP diastolic 49–69
[2019-12-08] MEDS ORDERED: CEFAZOLIN SODIUM 1 GM VIAL IVP SCH (02:00)
[2019-12-08 05:01] LABS: HEMATOCRIT 27.8 % (36-48); MEAN CORPUSCULAR HEMOGLOBIN 32.1 pg (27.0-33.0); MEAN CORPUSCULAR HGB CONC 32.4 g/dL (32.0-36.0); MEAN CORPUSCULAR VOLUME 99.3 fL (79-99); RED BLOOD CELL COUNT(AUTO) 2.8 MIL/uL (4.00-5.50); RED CELL DISTRIBUTION WIDTH 14.4 % (11.0-15.5); WHITE BLOOD COUNT (AUTO) 7.8 K/uL (4.8-10.8)
[2019-12-08 05:16] LABS: POTASSIUM 4.8 mmol/L (3.5-5.1)
[2019-12-08] MEDS: ACETAMINOPHEN EXTRA STRENGTH 500 MG TABLET PO SCH ×3 (05:50→21:22)
[2019-12-08] MEDS: CALCIUM CARBONATE 500 MG TABLET PO PRN ×2 (05:50→21:21)
[2019-12-08] MEDS: SODIUM CHLORIDE 0.9% 1000ML 1,000 ML IV SCH ×2 (05:52→16:49)
[2019-12-08] MEDS: INSULIN HUMULIN R 100 UNIT/ML 3ML SQ SCH ×4 (05:52→21:00)
[2019-12-08] MEDS: METFORMIN HCL 500 MG TABLET PO SCH ×2 (08:42→17:50)
[2019-12-08] MEDS: OXYCODONE HCL 5 MG TAB PO PRN (08:42)
[2019-12-08 08:43] LABS: INR 1.12 (0.85-1.15)
[2019-12-08] MEDS: LISINOPRIL 20 MG TABLET PO SCH (09:00)
[2019-12-08] MEDS: FAMOTIDINE 20MG TAB 20 MG TAB PO SCH ×2 (09:04→21:21)
[2019-12-08] MEDS: PANTOPRAZOLE SODIUM 40 MG TABLET.DR PO SCH (09:05)
[2019-12-08] MEDS: CELECOXIB 200 MG CAP PO SCH ×2 (09:05→21:21)
[2019-12-08] MEDS: FOLIC ACID 1 MG TABLET PO SCH (09:05)
[2019-12-08] MEDS: FUROSEMIDE 40 MG TABLET PO SCH ×2 (09:05→21:21)
[2019-12-08] MEDS: FERROUS SULFATE 325 MG TABLET.DR PO SCH (09:05)
[2019-12-08] MEDS: CYANOCOBALAMIN (VITAMIN B-12) 1,000 MCG TABLET PO SCH (09:05)
[2019-12-08] MEDS: APIXABAN 2.5 MG TABLET PO SCH ×2 (09:05→21:21)
[2019-12-08] MEDS: POTASSIUM CHLORIDE 20 MEQ ERTAB PO SCH (09:08)
[2019-12-08] MEDS: POLYETHYLENE GLYCOL 3350 17 GM POWD.PACK PO SCH (09:08)
--- NOTE | 2019-12-08 09:40 | NUR ---
DCP CM met with pt discussed dc plans. Pt is assist with ADL's prior to surgery, lives at home alone, cousin lives close by, family lives in [place]. Pt has a provider 42hrs/wk Monique Edmond . Pt has a current working standard walker no wheels, wheelchair, cpap, shower chair, bedside commode. Uses [facility] for meds. Pt agreeable for short term placement rehab as pt lives alone, TAL signed for [facility]. Pt verbalized to call provider as provider calls family in [place] for any needs. DC plan to SNF once stable. CM to cont to follow up. Addendum: 12/08/19 at 1255 by NNAMDI FELDMAN LVN CM Amended: Links added.
--- NOTE | 2019-12-08 09:45 | NUR ---
CM Note: [facility] pending approval CM faxed order, clinicals, PASRR to [facility], confirmation received. Spoke to Marie made aware Dr Cardenas pending to sign covid transfer form, also pending covid test result ordered today, aware dcp tomorrow. Pt pending acceptance. Primary nurse aware. CM to cont to follow up.
[2019-12-08] MEDS ORDERED: VANCOMYCIN PROTOCOL PER PHARMACY IV SCH (10:30)
--- NOTE | 2019-12-08 10:47 | NUR ---
09:50 PICC line placement.Will attempt to initiate skilled Physical Therapy Evaluation this PM.MAGDY Kennedy notified. Addendum: 12/08/19 at 1048 by ONELIA MAYA, PT PT Amended: Links added.
[2019-12-08] MEDS ORDERED: COMPOUND IV REFRIGERATED 1 EACH IVSOLN MISC PRN (11:30)
--- NOTE | 2019-12-08 11:45 | NUR ---
picc line 5 upper sorbian 2 lumen picc line inserted to right upper arm using sterile technique . pt bethanie well , no adverse reactions . picc line at 37 cm insertion site, 13 cm exposed .sterile dressing applied after completion. both port flushed without difficulty, good blood return to both ports. pt denied any pain or numbness to right arm. report given to primary nurse Marcia Henriquez RN. picc line ready to use per [facility] confirmation. tip placed at lower 1/3 of SVC OR AT [facility].
--- NOTE | 2019-12-08 12:22 | NUR ---
1200 patient signed IM Letter, I faxed IM Letter to [phone] and placed in chart under consent tab.
[2019-12-08] MEDS: CEFEPIME HCL 2 GM VIAL IVP SCH ×2 (12:27→18:25)
[2019-12-08] MEDS: VANCOMYCIN 1.5 GM in SODIUM CHLORIDE 0.9% 250 ML IV SCH (13:04)
[2019-12-08] MEDS: TEMAZEPAM 15 MG CAPSULE PO PRN (21:21)
[2019-12-09] MEDS: CEFEPIME HCL 2 GM VIAL IVP SCH ×2 (02:08→10:30)
[2019-12-09 03:59] LABS: HEMATOCRIT 25.1 % (36-48); MEAN CORPUSCULAR HEMOGLOBIN 32.7 pg (27.0-33.0); MEAN CORPUSCULAR HGB CONC 33.1 g/dL (32.0-36.0); MEAN CORPUSCULAR VOLUME 98.8 fL (79-99); RED BLOOD CELL COUNT(AUTO) 2.54 MIL/uL (4.00-5.50); RED CELL DISTRIBUTION WIDTH 14.6 % (11.0-15.5); WHITE BLOOD COUNT (AUTO) 4.7 K/uL (4.8-10.8)
[2019-12-09 04:00] VITALS: BP 105/51
[2019-12-09 04:12] LABS: POTASSIUM 5.4 mmol/L (3.5-5.1)
[2019-12-09] MEDS: ACETAMINOPHEN EXTRA STRENGTH 500 MG TABLET PO SCH ×3 (04:41→21:11)
[2019-12-09] MEDS: INSULIN HUMULIN R 100 UNIT/ML 3ML SQ SCH ×4 (07:30→21:00)
[2019-12-09 08:00] VITALS: BP 136/65
[2019-12-09] MEDS: PANTOPRAZOLE SODIUM 40 MG TABLET.DR PO SCH (08:26)
[2019-12-09] MEDS: FOLIC ACID 1 MG TABLET PO SCH (08:26)
[2019-12-09] MEDS: METFORMIN HCL 500 MG TABLET PO SCH ×2 (08:26→17:51)
[2019-12-09] MEDS: FUROSEMIDE 40 MG TABLET PO SCH ×2 (08:27→21:10)
[2019-12-09] MEDS: CELECOXIB 200 MG CAP PO SCH ×2 (08:27→21:10)
[2019-12-09] MEDS: FERROUS SULFATE 325 MG TABLET.DR PO SCH (08:27)
[2019-12-09] MEDS: POTASSIUM CHLORIDE 20 MEQ ERTAB PO SCH (08:27)
[2019-12-09] MEDS: CYANOCOBALAMIN (VITAMIN B-12) 1,000 MCG TABLET PO SCH (08:28)
[2019-12-09] MEDS: APIXABAN 2.5 MG TABLET PO SCH ×2 (08:28→21:10)
[2019-12-09] MEDS: FAMOTIDINE 20MG TAB 20 MG TAB PO SCH ×2 (08:28→21:10)
[2019-12-09] MEDS: LISINOPRIL 20 MG TABLET PO SCH (08:29)
[2019-12-09] MEDS: POLYETHYLENE GLYCOL 3350 17 GM POWD.PACK PO SCH (08:29)
[2019-12-09] MEDS: OXYCODONE HCL 5 MG TAB PO PRN (09:23)
[2019-12-09] MEDS: VANCOMYCIN 1.5 GM in SODIUM CHLORIDE 0.9% 250 ML IV SCH (09:49)
[2019-12-09] MEDS ORDERED: CEFEPIME HCL 1 GM VIAL ONE (11:12)
[2019-12-09 11:39] VITALS: BP 146/66
[2019-12-09] MEDS: CEFEPIME HCL 1 GM VIAL IVP SCH ×2 (11:45→21:09)
--- NOTE | 2019-12-09 12:23 | NUR ---
GLADYS Note: [facility] pending acceptance CM spoke to Marie espinal/Elizabeth, aware pt still pending covid result and Dr Cardenas to sign covid transfer form, will send once available. As per Macey pending to verify if pt will need to complete 3MN as pt has Medicare Part A&B insurance. Pt pending acceptance at this time. Dr Cardenas updated. Primary nurse aware. CM to cont to follow up.
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
[2019-12-09 16:00] VITALS: BP 111/51
--- NOTE | 2019-12-09 18:43 | NUR ---
PICC line dressing changed on 12/09/19 at 1800. Patient dressing changed using aseptic technique, cleaned with alcohol, and applied new adhesive dressing. Patient was instructed to refrain from pulling on PICC line. Patient understand information and tolerated dressing well.
[2019-12-09 20:31] VITALS: BP 119/47
[2019-12-10] VITALS (7 sets, daily range): BP systolic 99–132; BP diastolic 43–68
[2019-12-10 04:07] LABS: HEMATOCRIT 22.3 % (36-48); MEAN CORPUSCULAR HEMOGLOBIN 32.7 pg (27.0-33.0); MEAN CORPUSCULAR HGB CONC 33.2 g/dL (32.0-36.0); MEAN CORPUSCULAR VOLUME 98.7 fL (79-99); PLATELET COUNT (AUTO) 84 K/uL (130-400); RED BLOOD CELL COUNT(AUTO) 2.26 MIL/uL (4.00-5.50); RED CELL DISTRIBUTION WIDTH 14.6 % (11.0-15.5); WHITE BLOOD COUNT (AUTO) 2.8 K/uL (4.8-10.8)
[2019-12-10 04:16] LABS: CREATININE 1.3 mg/dL (0.5-1.5); POTASSIUM 5.1 mmol/L (3.5-5.1)
[2019-12-10 04:27] LABS: BAND NEUTROPHILS % (MANUAL) 2 % (0-2); EOSINOPHILS % (MANUAL) 4 % (1-6); LYMPHOCYTES % (MANUAL) 22 % (22-44); MONOCYTES % (MANUAL) 4 % (2-9); SEGMENTED NEUTROPHILS % 68 % (40-70)
[2019-12-10 04:28] LABS: MAN.DIFF COMMENT-IMPRESSION MANUAL DIFFERENTIAL; PLATELET MORPHOLOGY COMMENT DECREASED
[2019-12-10] MEDS: CEFEPIME HCL 1 GM VIAL IVP SCH ×3 (04:44→21:06)
[2019-12-10] MEDS: ACETAMINOPHEN EXTRA STRENGTH 500 MG TABLET PO SCH ×3 (04:45→21:09)
[2019-12-10] MEDS: INSULIN HUMULIN R 100 UNIT/ML 3ML SQ SCH ×4 (06:55→21:00)
[2019-12-10] MEDS: FOLIC ACID 1 MG TABLET PO SCH (08:29)
[2019-12-10] MEDS: POLYETHYLENE GLYCOL 3350 17 GM POWD.PACK PO SCH (08:29)
[2019-12-10] MEDS: PANTOPRAZOLE SODIUM 40 MG TABLET.DR PO SCH (08:30)
[2019-12-10] MEDS: FAMOTIDINE 20MG TAB 20 MG TAB PO SCH ×2 (08:30→21:10)
[2019-12-10] MEDS: CELECOXIB 200 MG CAP PO SCH ×2 (08:31→21:10)
[2019-12-10] MEDS: OXYCODONE HCL 5 MG TAB PO PRN (08:31)
[2019-12-10] MEDS: APIXABAN 2.5 MG TABLET PO SCH ×2 (08:31→21:10)
[2019-12-10] MEDS: METFORMIN HCL 500 MG TABLET PO SCH ×2 (08:32→15:55)
[2019-12-10] MEDS: FERROUS SULFATE 325 MG TABLET.DR PO SCH (08:32)
[2019-12-10] MEDS: FUROSEMIDE 40 MG TABLET PO SCH ×2 (08:32→21:09)
[2019-12-10] MEDS: CYANOCOBALAMIN (VITAMIN B-12) 1,000 MCG TABLET PO SCH (08:32)
[2019-12-10] MEDS ORDERED: FUROSEMIDE 10 MG/ML 2ML VIAL IV SCH ×3 (08:45→16:00)
[2019-12-10] MEDS: POTASSIUM CHLORIDE 20 MEQ ERTAB PO SCH (09:00)
[2019-12-10] MEDS: LISINOPRIL 20 MG TABLET PO SCH (09:00)
[2019-12-10] MEDS ORDERED: VANCOMYCIN 1GM+NS 250ML 0 ML IV ONE (10:10)
[2019-12-10] MEDS: VANCOMYCIN 1.5 GM in SODIUM CHLORIDE 0.9% 250 ML IV SCH (10:56)
[2019-12-10] MEDS ORDERED: PHARMACY COMMUNICATION MISC SCH (12:15)
--- NOTE | 2019-12-10 13:00 | NUR ---
CM Note: [facility] approval CM spoke to Marie espinal/[facility], received covid result faxed, pt has approval, aware pending Dr Cardenas to sign Covid transfer form, will send once MD sign. EMS arranged and faxed for today, primary nurse to call [facility] once pt ready to DC. Primary nurse Randa aware. Dr Cardenas updated. As per Primary nurse Randa pt pending 2uprbc to be transfused today and Dr Anuel ceballos recs on dc. CM to cont to follow up.
[2019-12-10] MEDS ORDERED: COMPOUND IV MISC 1 EACH IVSOLN MISC PRN (15:15)
[2019-12-10] MEDS ORDERED: DAPTOMYCIN 500 MG in SODIUM CHLORIDE 0.9% 50 ML IV SCH (16:00)
[2019-12-10] MEDS ORDERED: BISACODYL 10 MG SUPP.RECT RC PRN (21:00)
[2019-12-11 03:40] LABS: HEMATOCRIT 30.5 % (36-48); MEAN CORPUSCULAR HEMOGLOBIN 30.9 pg (27.0-33.0); MEAN CORPUSCULAR HGB CONC 33.8 g/dL (32.0-36.0); MEAN CORPUSCULAR VOLUME 91.6 fL (79-99); RED BLOOD CELL COUNT(AUTO) 3.33 MIL/uL (4.00-5.50); RED CELL DISTRIBUTION WIDTH 17.2 % (11.0-15.5); WHITE BLOOD COUNT (AUTO) 3.2 K/uL (4.8-10.8)
[2019-12-11 04:00] VITALS: BP 141/75
[2019-12-11] MEDS: CEFEPIME HCL 1 GM VIAL IVP SCH ×2 (04:20→11:53)
[2019-12-11] MEDS: ACETAMINOPHEN EXTRA STRENGTH 500 MG TABLET PO SCH ×2 (04:23→12:37)
[2019-12-11] MEDS: INSULIN HUMULIN R 100 UNIT/ML 3ML SQ SCH ×3 (06:05→16:30)
[2019-12-11] MEDS: POLYETHYLENE GLYCOL 3350 17 GM POWD.PACK PO SCH (07:56)
[2019-12-11 08:23] VITALS: BP 164/78
[2019-12-11] MEDS: POTASSIUM CHLORIDE 20 MEQ ERTAB PO SCH (09:00)
[2019-12-11] MEDS: FAMOTIDINE 20MG TAB 20 MG TAB PO SCH (10:52)
[2019-12-11] MEDS: APIXABAN 2.5 MG TABLET PO SCH (10:52)
[2019-12-11] MEDS: CYANOCOBALAMIN (VITAMIN B-12) 1,000 MCG TABLET PO SCH (10:53)
[2019-12-11] MEDS: FOLIC ACID 1 MG TABLET PO SCH (10:53)
[2019-12-11] MEDS: LISINOPRIL 20 MG TABLET PO SCH (10:53)
[2019-12-11] MEDS: PANTOPRAZOLE SODIUM 40 MG TABLET.DR PO SCH (10:53)
[2019-12-11] MEDS: CELECOXIB 200 MG CAP PO SCH (10:53)
[2019-12-11] MEDS: FUROSEMIDE 40 MG TABLET PO SCH (10:53)
[2019-12-11] MEDS: FERROUS SULFATE 325 MG TABLET.DR PO SCH (10:53)
[2019-12-11 11:33] VITALS: BP 128/65
[2019-12-11] MEDS: METFORMIN HCL 500 MG TABLET PO SCH ×2 (12:28→16:39)
[2019-12-11] MEDS ORDERED: HYDR-4060 PO (15:42)
[2019-12-11] MEDS ORDERED: APIX2.5T PO (15:42)
[2019-12-11] MEDS ORDERED: DAPTOMYCIN 500 MG in SODIUM CHLORIDE 0.9% 50 ML IV SCH (16:00)
--- NOTE | 2019-12-11 17:00 | NUR ---
KRISTINE REPORT GIVEN TO NURSE RUFINA CULVER [phone]
--- NOTE | 2019-12-11 17:15 | NUR ---
LEFT KNEE INCISION DRESSING CHANGE PERFORMED LEFT KNEE INCISION DRESSING CHANGE PRIOR TO DISCHARGE. LEFT KNEE INCISION APPROXIMATED, ARLENE INTACT. CLEANSED WITH BETADINE, COVERED WITH 4X4 GAUZE AND SECURED WITH MEDIPORE TAPE. PATIENT TO BE DISCHARGED WITH RIGHT UPPER ARM PICC LINE IN PLACE.
--- NOTE | 2019-12-11 17:55 | NUR ---
[facility] [phone] CALLED TO REPORT THAT PATIENT IN ROOM 302 AND READY TO BE PICKED UP AND TRANSFERRED TO [facility] [place]
== END 2019-12-11 20:15 | DRG 467 ==
LOC: DAHIP 12-07 07:26 → 3AH 12-07 21:53
PROVIDERS: ADMIT Orthopaedic Surgery; ATTEND Orthopaedic Surgery
PROC: 0SPD0JZ Removal of Synthetic Substitute from Left Knee Joint, Open Approach (ICD-10-PCS; principal; 2019-12-07 16:18)
PROC: 0SRD0M9 Replacement of Left Knee Joint with Lateral Unicondylar Synthetic Substitute, Cemented, Open Approach (ICD-10-PCS; 2019-12-07 16:18)
PROC: 05HY33Z Insertion of Infusion Device into Upper Vein, Percutaneous Approach (ICD-10-PCS; 2019-12-08)
PROC: 30233N1 Transfusion of Nonautologous Red Blood Cells into Peripheral Vein, Percutaneous Approach (ICD-10-PCS; 2019-12-10)
DX: T84.54XA Infection and inflammatory reaction due to internal left knee prosthesis, initial encounter (principal); D62 Acute posthemorrhagic anemia; Z68.41 Body mass index [BMI] 40.0-44.9, adult; D69.6 Thrombocytopenia, unspecified; D72.819 Decreased white blood cell count, unspecified; M19.90 Unspecified osteoarthritis, unspecified site; J44.9 Chronic obstructive pulmonary disease, unspecified; D69.59 Other secondary thrombocytopenia; E11.51 Type 2 diabetes mellitus with diabetic peripheral angiopathy without gangrene; Z96.653 Presence of artificial knee joint, bilateral; E66.01 Morbid (severe) obesity due to excess calories; E78.5 Hyperlipidemia, unspecified; I11.9 Hypertensive heart disease without heart failure; Y83.8 Other surgical procedures as the cause of abnormal reaction of the patient, or of later complication, without mention of misadventure at the time of the procedure; Y92.89 Other specified places as the place of occurrence of the external cause; Z87.891 Personal history of nicotine dependence; Z90.49 Acquired absence of other specified parts of digestive tract; Z83.3 Family history of diabetes mellitus
CPT/HCPCS: 36415; 73562; 80048; 80202; 81001; 82550; 82948; 84295; 85025; 85027; 85610; 85651; 86850; 86900; 86901; 86923; 87070; 87076; 87205; 87641; 89051; 93005; 97039; C1776; C1894; G0378; J0690; J0692; J0878; J1100; J1815; J1885; J1940; J2001; J2175; J2405; J2704; J2710; J2795; J3010; J3370; J3490; J7030; J7050; J7120; P9016; U0003

== ENCOUNTER 2019-12-16 17:36 | Emergency (ER) | payer MEDICARE ==
[~2019-12-16 17:36] MED LIST changes: +APIX2.5T PO; -ASPI-1197 PO; +CYAN-35 PO; +FERR-82 PO; +FOLI0.8T PO; +FURO40TA5 PO; +HYDR-4060 PO; -INSU100I21 SQ; +POTA-79 PO; +TRAM50TA4 PO
[2019-12-16] MEDS ORDERED: HYDROCODONE/ACETAMINOPHEN 5/325 MG TAB ONE (18:49)
[2019-12-16] MEDS ORDERED: LACT10SO9 PO (19:29)
[2019-12-16] MEDS ORDERED: FAMO20TA8 PO (19:29)
[2019-12-16] MEDS ORDERED: POLY17PO29 PO (19:29)
[2019-12-16] MEDS ORDERED: CEFE1VIA7 IV (19:29)
[2019-12-16] MEDS ORDERED: ONDA22I IV (19:29)
[2019-12-16] MEDS ORDERED: ZINC57OI4 TP (19:29)
[2019-12-16] MEDS ORDERED: DAPT500V2 IV (19:29)
== END 2019-12-16 21:28 ==
LOC: EDH 17:36
DX: M00.862 Arthritis due to other bacteria, left knee (principal); E11.9 Type 2 diabetes mellitus without complications; J44.9 Chronic obstructive pulmonary disease, unspecified; E78.5 Hyperlipidemia, unspecified; I10 Essential (primary) hypertension; I73.9 Peripheral vascular disease, unspecified; Z98.890 Other specified postprocedural states; Z87.891 Personal history of nicotine dependence

== ENCOUNTER → 2021-10-02 | Outpatient (CLI) | payer OTHER, MEDICARE ==
[~2021-10-02] MED LIST changes: +CEFE1VIA7 IV; +DAPT500V17 IV; +FAMO20TA8 PO; -FOLI0.8T PO; +FOLI0.8T3 PO; +LACT10SO9 PO; +LIDOCAINE HCL 4% LTA SOL 4 ML VIAL TP ONE; -LISI-613 PO; +LISI20TA24 PO; -OMEP40CA13 PO; +OMEP40CA21 PO; +ONDA22I IV; +POLY17PO52 PO; -TRAM50TA4 PO; +ZINC57OI4 TP
== END | disposition home or self-care (01) ==
LOC: WHH 09:48
PROVIDERS: ATTEND Family Medicine
DX: S81.802A Unspecified open wound, left lower leg, initial encounter (principal); S41.102A Unspecified open wound of left upper arm, initial encounter; I89.0 Lymphedema, not elsewhere classified; E11.628 Type 2 diabetes mellitus with other skin complications; E78.5 Hyperlipidemia, unspecified; I27.20 Pulmonary hypertension, unspecified; I11.9 Hypertensive heart disease without heart failure; J44.9 Chronic obstructive pulmonary disease, unspecified; E66.9 Obesity, unspecified; M19.90 Unspecified osteoarthritis, unspecified site; Z87.891 Personal history of nicotine dependence; Z68.41 Body mass index [BMI] 40.0-44.9, adult; Z90.49 Acquired absence of other specified parts of digestive tract; Z96.653 Presence of artificial knee joint, bilateral; Z79.899 Other long term (current) drug therapy; X58.XXXD Exposure to other specified factors, subsequent encounter; Y93.89 Activity, other specified; Y92.89 Other specified places as the place of occurrence of the external cause; Y99.8 Other external cause status
CPT/HCPCS: 29580; A4450; A6456; G0463; L3260

== ENCOUNTER → 2021-10-09 | Outpatient (CLI) | payer OTHER, MEDICARE | END | disposition home or self-care (01) | LOC: WHH 08:53 | PROVIDERS: ATTEND Family Medicine | DX: I89.0 Lymphedema, not elsewhere classified (principal); S51.802A Unspecified open wound of left forearm, initial encounter; S81.802D Unspecified open wound, left lower leg, subsequent encounter; S41.102D Unspecified open wound of left upper arm, subsequent encounter; E11.628 Type 2 diabetes mellitus with other skin complications; E78.5 Hyperlipidemia, unspecified; I27.20 Pulmonary hypertension, unspecified; I11.9 Hypertensive heart disease without heart failure; J44.9 Chronic obstructive pulmonary disease, unspecified; M19.90 Unspecified osteoarthritis, unspecified site; E66.9 Obesity, unspecified; Z68.41 Body mass index [BMI] 40.0-44.9, adult; Z87.891 Personal history of nicotine dependence; Z90.49 Acquired absence of other specified parts of digestive tract; Z96.653 Presence of artificial knee joint, bilateral; Z79.899 Other long term (current) drug therapy; X58.XXXD Exposure to other specified factors, subsequent encounter; X58.XXXA Exposure to other specified factors, initial encounter; Y93.89 Activity, other specified; Y92.89 Other specified places as the place of occurrence of the external cause; Y99.8 Other external cause status | CPT/HCPCS: 29580; G0463; A6456 ==

== ENCOUNTER → 2021-10-30 | Outpatient (CLI) | payer OTHER, MEDICARE ==
[~2021-10-30] MED LIST changes: -LIDOCAINE HCL 4% LTA SOL 4 ML VIAL TP ONE
== END | disposition home or self-care (01) ==
LOC: WHH 08:49
PROVIDERS: ATTEND Family Medicine
DX: I89.0 Lymphedema, not elsewhere classified (principal); E11.628 Type 2 diabetes mellitus with other skin complications; J44.9 Chronic obstructive pulmonary disease, unspecified; I10 Essential (primary) hypertension; E78.5 Hyperlipidemia, unspecified; I27.20 Pulmonary hypertension, unspecified; I11.9 Hypertensive heart disease without heart failure; E66.9 Obesity, unspecified; Z87.891 Personal history of nicotine dependence; M19.90 Unspecified osteoarthritis, unspecified site; Z68.41 Body mass index [BMI] 40.0-44.9, adult; Z90.49 Acquired absence of other specified parts of digestive tract; Z96.653 Presence of artificial knee joint, bilateral; Z79.899 Other long term (current) drug therapy
CPT/HCPCS: 29580; G0463; A6456

== ENCOUNTER → 2021-11-14 | Outpatient (CLI) | payer OTHER, MEDICARE | END | disposition home or self-care (01) | LOC: WHH 08:54 | PROVIDERS: ATTEND Family Medicine | DX: I89.0 Lymphedema, not elsewhere classified (principal); E11.628 Type 2 diabetes mellitus with other skin complications; J44.9 Chronic obstructive pulmonary disease, unspecified; E78.5 Hyperlipidemia, unspecified; I11.9 Hypertensive heart disease without heart failure; I27.20 Pulmonary hypertension, unspecified; E66.9 Obesity, unspecified; M19.90 Unspecified osteoarthritis, unspecified site; Z68.41 Body mass index [BMI] 40.0-44.9, adult; Z87.891 Personal history of nicotine dependence; Z90.49 Acquired absence of other specified parts of digestive tract; Z96.653 Presence of artificial knee joint, bilateral; Z79.899 Other long term (current) drug therapy | CPT/HCPCS: G0463 ==

== ENCOUNTER → 2021-12-05 | Outpatient (CLI) | payer OTHER, MEDICARE | END | disposition home or self-care (01) | LOC: WHH 08:49 | PROVIDERS: ATTEND Family Medicine | DX: I89.0 Lymphedema, not elsewhere classified (principal); E11.628 Type 2 diabetes mellitus with other skin complications; J44.9 Chronic obstructive pulmonary disease, unspecified; E78.5 Hyperlipidemia, unspecified; I11.9 Hypertensive heart disease without heart failure; I27.20 Pulmonary hypertension, unspecified; E66.9 Obesity, unspecified; M19.90 Unspecified osteoarthritis, unspecified site; Z68.41 Body mass index [BMI] 40.0-44.9, adult; Z87.891 Personal history of nicotine dependence; Z90.49 Acquired absence of other specified parts of digestive tract; Z96.653 Presence of artificial knee joint, bilateral; Z79.899 Other long term (current) drug therapy | CPT/HCPCS: G0463 ==

== ENCOUNTER 2022-01-25 14:15 | Emergency (ER) | payer OTHER, MEDICARE ==
[~2022-01-25] VITALS: Ht 157.5 cm; Wt 109.3 kg
[2022-01-25 14:19] VITALS: BP 114/55
[2022-01-25 15:02] LABS: APPEARANCE,URINE CLEAR (CLEAR); BILIRUBIN,URINE NEGATIVE (NEGATIVE); COLOR,URINE YELLOW (YELLOW); GLUCOSE, URINE (UA) NEGATIVE (NEGATIVE); KETONES,URINE NEGATIVE (NEGATIVE); LEUKOCYTE ESTERASE ,URINE NEGATIVE Leu/uL (NEGATIVE); NITRATE,URINE NEGATIVE (NEGATIVE); OCCULT BLOOD,URINE NEGATIVE (NEGATIVE); PROTEIN,URINE NEGATIVE (NEGATIVE); UROBILINOGEN,URINE 0.2 mg/dL (0.2-1.0)
[2022-01-25 15:13] LABS: BACTERIA,URINE RARE /HPF (None Seen); RBC,URINE 0-1 /HPF (0-1); SQUAMOUS EPITHELIAL CELL,UR FEW /HPF (0-2)
[2022-01-25] MEDS ORDERED: CEPH500B PO (15:23)
[2022-01-25] MEDS ORDERED: ACETAMINOPHEN 500 MG TABLET ONE (15:26)
[2022-01-25] MEDS ORDERED: CEFTRIAXONE 1G VIAL ONE (15:26)
[2022-01-25] MEDS ORDERED: ACETAMINOPHEN 500 MG TABLET PO ONE (15:30)
[2022-01-25] MEDS ORDERED: CEFTRIAXONE 1G VIAL IM ONE (15:30)
== END 2022-01-25 15:43 | disposition home or self-care (01) ==
LOC: EDH 14:15
DX: N39.0 Urinary tract infection, site not specified (principal); R33.9 Retention of urine, unspecified; E11.9 Type 2 diabetes mellitus without complications; I10 Essential (primary) hypertension; E66.01 Morbid (severe) obesity due to excess calories; Z68.41 Body mass index [BMI] 40.0-44.9, adult; Z60.2 Problems related to living alone; Z79.84 Long term (current) use of oral hypoglycemic drugs; Z79.899 Other long term (current) drug therapy
CPT/HCPCS: 99284; 81001; 51702; 96372; J0696

== ENCOUNTER 2022-01-29 21:54 | Emergency (ER) | payer OTHER, MEDICARE ==
[~2022-01-29] VITALS: Ht 157.5 cm; Wt 114.3 kg
[~2022-01-29 21:54] MED LIST changes: +CEPH500B PO
[2022-01-29 22:24] VITALS: BP 143/84
== END 2022-01-29 23:38 | disposition home or self-care (01) ==
LOC: EDH 21:54
DX: T83.098A Other mechanical complication of other urinary catheter, initial encounter (principal); E11.9 Type 2 diabetes mellitus without complications; E66.01 Morbid (severe) obesity due to excess calories; Z68.42 Body mass index [BMI] 45.0-49.9, adult; Z79.01 Long term (current) use of anticoagulants; Z79.84 Long term (current) use of oral hypoglycemic drugs; Z90.49 Acquired absence of other specified parts of digestive tract; Y83.8 Other surgical procedures as the cause of abnormal reaction of the patient, or of later complication, without mention of misadventure at the time of the procedure; Y92.89 Other specified places as the place of occurrence of the external cause

== ENCOUNTER → 2022-05-08 | Outpatient (CLI) | payer OTHER, MEDICARE | END | disposition home or self-care (01) | LOC: SHCH 08:41 | PROVIDERS: ATTEND Internal Medicine Cardiovascular Disease | DX: I87.2 Venous insufficiency (chronic) (peripheral) (principal) | CPT/HCPCS: 93970 ==

== ENCOUNTER → 2022-06-18 | Outpatient (CLI) | payer OTHER, MEDICARE ==
[~2022-06-18] MED LIST changes: -APIX2.5T PO; +B1 PO; -CEFE1VIA7 IV; -CEPH500B PO; -CYAN-35 PO; -DAPT500V17 IV; +DOXY100T2 PO; -FAMO20TA8 PO; -FERR-82 PO; +FOLATE PO; -FOLI0.8T3 PO; -HYDR-4060 PO; +IRON18TA PO; -LACT10SO9 PO; -LISI20TA24 PO; +MECO10005 PO; -METF-444 PO; +METO2.5T2 PO; -ONDA22I IV; -POLY17PO52 PO; -POTA-79 PO; +SITA100T12 PO; -ZINC57OI4 TP
[2022-06-18 16:19] LABS: BASOPHILS % (AUTO) 0.6 % (0.0-5.0); EOSINOPHILS % (AUTO) 1.1 % (0.0-8.0); HEMATOCRIT 31.5 % (36-48); LYMPHOCYTES % (AUTO) 20.7 % (21.0-51.0); MEAN CORPUSCULAR HGB CONC 32.4 g/dL (32.0-36.0); MONOCYTES % (AUTO) 9.9 % (3.0-13.0); NEUTROPHILS % (AUTO) 65.2 % (40.0-77.0); PLATELET COUNT (AUTO) 125 K/uL (130-400)
[2022-06-18 16:32] LABS: INR 1.23 (0.85-1.15); PROTHROMBIN TIME 13.2 SEC (9.6-11.6)
[2022-06-18 16:33] LABS: PARTIAL THROMBOPLASTIN TIME 29.9 SEC (26.3-35.5)
[2022-06-18 16:54] LABS: CREATININE 1.9 mg/dL (0.5-1.5); POTASSIUM 3.1 mmol/L (3.5-5.1)
== END | disposition home or self-care (01) ==
LOC: LAB 09:00
PROVIDERS: ATTEND Internal Medicine Cardiovascular Disease
DX: I10 Essential (primary) hypertension (principal); E78.5 Hyperlipidemia, unspecified; Z86.2 Personal history of diseases of the blood and blood-forming organs and certain disorders involving the immune mechanism
CPT/HCPCS: 36415; 80048; 85025; 85610; 85730

== ENCOUNTER 2022-07-30 20:08 | Emergency (ER) | payer OTHER, MEDICARE ==
[~2022-07-30] VITALS: Ht 160 cm; Wt 108.9 kg
[~2022-07-30 20:08] MED LIST changes: -DOXY100T2 PO; +MECL-160 PO; +POTA-364 PO
[2022-07-30 23:14] LABS: BASOPHILS % (AUTO) 0.4 % (0.0-5.0); EOSINOPHILS % (AUTO) 1.1 % (0.0-8.0); HEMATOCRIT 25.5 % (36-48); LYMPHOCYTES % (AUTO) 24.3 % (21.0-51.0); MEAN CORPUSCULAR HEMOGLOBIN 34.8 pg (27.0-33.0); MEAN CORPUSCULAR HGB CONC 33.7 g/dL (32.0-36.0); MEAN CORPUSCULAR VOLUME 103.2 fL (79-99); MONOCYTES % (AUTO) 11.5 % (3.0-13.0); NEUTROPHILS % (AUTO) 60.7 % (40.0-77.0); PLATELET COUNT (AUTO) 86 K/uL (130-400); RED BLOOD CELL COUNT(AUTO) 2.47 MIL/uL (4.00-5.50); RED CELL DISTRIBUTION WIDTH 16.1 % (11.0-15.5); WHITE BLOOD COUNT (AUTO) 4.5 K/uL (4.8-10.8)
[2022-07-30 23:24] LABS: CREATININE 2.4 mg/dL (0.5-1.5)
[2022-07-30 23:28] LABS: ALBUMIN 1.8 g/dL (3.5-5.0); TOTAL PROTEIN, SERUM 7.4 g/dL (6.0-8.3)
[2022-07-30 23:59] LABS: BILIRUBIN,URINE NEGATIVE (NEGATIVE); COLOR,URINE YELLOW (YELLOW); GLUCOSE, URINE (UA) NEGATIVE (NEGATIVE); KETONES,URINE NEGATIVE (NEGATIVE); LEUKOCYTE ESTERASE ,URINE 250 Leu/uL (NEGATIVE); NITRATE,URINE NEGATIVE (NEGATIVE); OCCULT BLOOD,URINE NEGATIVE (NEGATIVE); PH,URINE 5.5 (5.0-8.0); PROTEIN,URINE NEGATIVE (NEGATIVE); UROBILINOGEN,URINE 0.2 mg/dL (0.2-1.0)
[2022-07-31] LABS: APPEARANCE,URINE SLIGHTLY CLOUDY (CLEAR)
[2022-07-31 00:03] LABS: BACTERIA,URINE RARE /HPF (None Seen); MUCUS,URINE RARE LPF (None Seen); SQUAMOUS EPITHELIAL CELL,UR MOD /HPF (0-2); WBC,URINE 26-50 /HPF (0-1)
[2022-07-31] MEDS ORDERED: CEFTRIAXONE 1G VIAL IVPB ONE (02:00)
[2022-07-31] MEDS ORDERED: CEPH500T PO (04:17)
[2022-07-31 04:23] VITALS: BP 123/58
== END 2022-07-31 05:08 | disposition home or self-care (01) ==
LOC: EDH 20:08
DX: N39.0 Urinary tract infection, site not specified (principal); G44.209 Tension-type headache, unspecified, not intractable; I10 Essential (primary) hypertension; E11.9 Type 2 diabetes mellitus without complications; E78.00 Pure hypercholesterolemia, unspecified; E66.09 Other obesity due to excess calories; Z68.41 Body mass index [BMI] 40.0-44.9, adult; Z79.84 Long term (current) use of oral hypoglycemic drugs; Z79.899 Other long term (current) drug therapy; Z90.49 Acquired absence of other specified parts of digestive tract
CPT/HCPCS: 99285; 83735; 84484; 80053; 83690; 85025; 87077; 87088; 87186; 81001; 36415; 93005; 96365; 70450; J0696